=== PATIENT | male | born 1965 | race Caucasian/White ===

== ENCOUNTER 2020-02-25 08:06 | Inpatient (IN) ==
--- NOTE | 2020-02-05 15:06 | PAT Medication Instructions ---
Medication Instructions Date of Service February 05, 2020 Home Medications metformin 500 mg PO QPM multivitamin 1 tab PO QAM pantoprazole [Protonix] 40 mg PO QAM DO NOT take the morning of surgery multivitamin 1 tab PO QAM Take morning of surgery With a small sip of water, OTHERWISE NOTHING TO EAT OR DRINK AFTER MIDNIGHT: pantoprazole [Protonix] 40 mg PO QAM Take evening before surgery metformin 500 mg PO QPM Other Notes If you have any questions please call us at [phone] or [phone] or [phone] or [phone]
--- NOTE | 2020-02-11 17:40 | PAT Medication Instructions ---
Medication Instructions Date of Service February 11, 2020 Home Medications metformin 500 mg PO QPM multivitamin 1 tab PO QAM pantoprazole [Protonix] 40 mg PO QAM DO NOT take the morning of surgery multivitamin 1 tab PO QAM Take morning of surgery With a small sip of water, OTHERWISE NOTHING TO EAT OR DRINK AFTER MIDNIGHT: pantoprazole [Protonix] 40 mg PO QAM Take evening before surgery metformin 500 mg PO QPM Other Notes If you have any questions please call us at [phone] or [phone] or [phone] or [phone]
--- NOTE | 2020-02-12 09:21 | Anesthesiology Consultation ---
Date of Service February 12, 2020 Assessment & Plan (1) Encounter for pre-operative examination: COVID Status: As of 02/11 PAT assessment, patient denies travel to endemic area, known exposure/sick contacts, symptoms, or testing for coronavirus. Chart Review Chart Review: Acceptable Risk for Surgery and Patient seen in Pre Admission Testing Teaching & Discussion Instructed NPO after midnight before surgery, except medications with 15 cc of water. Medication instructions provided according to the PAT guidelines. History Surgery Operation Date: 02/25/20 10:05 Proposed Procedures p L4-S1 Decompression and Fusion, Spinal Cord Monitoring - Richi Brown DO Height/Weight Height: 6 ft Weight: 98.3 kg Allergies Allergy/AdvReac Type Severity Reaction Status Date / Time prednisone AdvReac Shakiness Verified 02/05/20 11:22 Medications Home Medications Medication Instructions Recorded Confirmed Last Taken metformin 500 mg PO QPM 02/05/20 02/05/20 Unknown multivitamin 1 tab PO QAM 02/05/20 02/05/20 Unknown pantoprazole [Protonix] 40 mg PO QAM 02/05/20 02/05/20 Unknown Past Medical History Medical History Barretts esophagus Chronic back pain Degenerative disc disease DM type 2 (diabetes mellitus, type 2) NIDDM GERD (gastroesophageal reflux disease) Sciatic pain Exercise / Class Metabolic Activity II 4-5 Yardwork/Stairs/Walk up hill (Denies CP or SOB with 1 FOS) Past Family History Family History Mother Diabetes Other No family history of adverse response to anesthesia Past Surgical History Surgical History History of appendectomy History of cholecystectomy History of colonoscopy History of esophagogastroduodenoscopy (EGD) History of foot surgery History of lumbar surgery Hx of LASIK Past Anesthesia History No Hx of Anesthesia Complications and No Family Hx of Anesthesia Complications History of PONV No Hx of PONV and No Hx of Motion Sickness Social History Smoking Status: Former smoker Do You Dip or Chew Tobacco: No Smoking End Date: 25 years ago Hx Alcohol Use: Yes Alcohol type: beer alcohol intake frequency: a few times a month Hx Substance Use: No substance use type: does not use Review of Systems Pt denies any recent chest pain, shortness of breath, palpitations, cough, fever or URI. Physical Exam Vital Signs BP: 136/79 P: 64bpm SPO2: 98% RA T: 98.0 F R: 14 ENMT Mouth: + chipped teeth (upper L molar); no dental restorations and no loose teeth Thyromental Distance: < 3.5 Finger Breadths (3) Mallampati Class: II Neck normal visual inspection; neck extension not limited Respiratory normal respiratory effort Auscultation: lungs clear to auscultation bilaterally Cardiovascular Rate/Rhythm: regular rate Heart Sounds: no murmur Testing Laboratory Results 02/12/20 09:29 02/12/20 09: PT 10.5 Seconds (9.0-12.0) 02/12/20 09: INR 1.0 (0.9-1.1) 02/12/20 09: APTT 27.3 Seconds (21.0-31.0) 02/12/20 09: Urine Color Yellow 02/12/20: Urine Appearance Clear (Clear) 02/12/20 09: Urine pH 8.5 (4.5-7.5) H 02/12/20 09:29 Ur Specific [place] 1.013 (1.000-1.030) 02/12/20 09: Urine Protein Negative (Negative) 02/12/20 09: Urine Glucose (UA) Negative (Negative) 02/12/20 09: Urine Ketones Negative (Negative) 02/12/20 09: Urine Nitrite Negative (Negative) 02/12/20: Ur Leukocyte Esterase Negative (Negative) 02/12/20 09: Blood Type B Positive 02/12/20 09:29 Antibody Screen NEGATIVE 02/12/20 09:29 Electrocardiogram Date: 02/12/20 Findings: + SB @ (59bpm) Right axis deviation. Chest X-Ray Date: 02/12/20 Findings: + NAD
--- NOTE | 2020-02-12 09:51 | XRay Report ---
XR chest Pre-admission PA/Lat CLINICAL HISTORY: PAT preoperative evaluation COMPARISON STUDY: No previous studies for comparison. FINDINGS: The bones soft tissues and hemidiaphragms are normal. The cardiomediastinal silhouette is n ormal. The lungs are clear. The pulmonary vasculature is normal. IMPRESSION: Negative chest. ACT 112: Negative or not required by law. The above report was generated using voice recognition software. It may contain grammatical, syntax or spelling errors. Electronically signed by: Irineo Monroe M.D. 02/12/2020 9:49 AM
[2020-02-12 10:34] LABS: Basophils # (auto) 0.05 K/uL (0-0.2); Basophils % (auto) 0.8 %; Eosinophils # (auto) 0.13 K/uL (0-0.5); Hematocrit (blood only) 44.6 % (42-52); Immature Granulocytes # (auto) 0.01 K/uL (0.00-0.02); Immature Granulocytes % (auto) 0.2 %; Lymphocytes # (auto) 1.66 K/uL (1.2-3.4); Mean Corpuscular Hemoglobin 30.9 pg (25-34); Mean Corpuscular Hgb Conc 33.6 g/dL (32-36); Mean Platelet Volume 9.1 fL (7.4-10.4); Neutrophils # (auto) 4.19 K/uL (1.4-6.5); Platelet Count 250 K/uL (130-400); RDW Coefficient of Variation 13.2 % (11.5-14.5); RDW Standard Deviation 44.4 fL (36.4-46.3); Red Blood Count 4.85 M/uL (4.7-6.1); White Blood Count 6.64 K/uL (4.8-10.8)
[2020-02-12 10:39] LABS: BUN Creatinine Ratio 14.9 (10-20); Calcium 9.1 mg/dl (8.5-10.1); Creatinine Clr Calc Pharmacy 122.2 ml/min; Est GFR (African American) 114.8; Est GFR (Non-African American) 99.1; Potassium 4.3 mmol/L (3.5-5.1)
[2020-02-12 10:44] LABS: Appearance Urine Clear (Clear); Bilirubin Urine Negative (Negative); Blood Urine Negative (Negative); Color Urine Yellow; Glucose Urine UA Negative (Negative); Ketones Urine Negative (Negative); Leukocyte Esterase Urine Negative (Negative); Nitrite Urine Negative (Negative); Partial Thromboplastin Time 27.3 Seconds (21.0-31.0); Protein Urine Negative (Negative); Prothrombin Time 10.5 Seconds (9.0-12.0); Specific Gravity Urine 1.013 (1.000-1.030); Urobilinogen Urine Negative (Negative); pH Urine 8.5 (4.5-7.5)
--- NOTE | 2020-02-12 12:38 | Electrocardiogram Report ---
Test Reason : Blood Pressure : / mmHG Vent. Rate : 059 BPM Atrial Rate : 059 BPM P-R Int : 174 ms QRS Dur : 116 ms QT Int : 400 ms P-R-T Axes : 021 118 037 degrees QTc Int : 396 ms Sinus bradycardia Right axis deviation Abnormal ECG No previous ECGs available Confirmed by Joseph Vega ([id number]) on 02/12/2020 12:38:30 PM Referred By: Richi Brown Confirmed By:Joseph Vega
[~2020-02-25 08:06] MED LIST: ACETAMINOPHEN 500 MG TAB PO SCH; CEFAZOLIN 2000MG 2,000 MG/15 ML SYR IV SCH; CeleBREX 200 MG CAP PO SCH; GABAPENTIN 900 MG DOSE PO SCH; LR 15ML/HR IV SCH; SODIUM CHLORIDE 0.9% 250 ML IV PRN
[2020-02-25] MEDS ORDERED: ATROPINE SULFATE 0.1 MG/ML 10ML SYR IV PRN (09:12)
[2020-02-25] MEDS ORDERED: ONDANSETRON INJ 2 MG/ML 2 ML VIAL IV PRN ×2 (09:12→14:00)
[2020-02-25] MEDS ORDERED: ePHEDrine sulfate 50 MG/ML AMP IV PRN (09:12)
[2020-02-25] MEDS ORDERED: DEXAMETHASONE SOD INJ 4 MG/ML VIAL ONE (09:27)
[2020-02-25] MEDS ORDERED: NEOSTIGMINE METHYLSULFATE 5 MG/5 ML SYR ONE (09:27)
[2020-02-25] MEDS ORDERED: GLYCOPYRROLATE 0.2 MG/ML VIAL ONE (09:27)
[2020-02-25] MEDS ORDERED: ONDANSETRON INJ 2 MG/ML 2 ML VIAL ONE (09:27)
[2020-02-25] MEDS ORDERED: LIDOCAINE HCL 2% 2 ML VIAL/AMP(20MG/ML) INFIL ONE (09:27)
[2020-02-25] MEDS ORDERED: fentaNYL citrate 100 MCG/2 ML VIAL ONE ×2 (09:27)
[2020-02-25] MEDS ORDERED: MIDAZOLAM HCL 1 MG/ML 2ML VIAL ONE (09:27)
[2020-02-25] MEDS ORDERED: PROPOFOL IV EMULSION 10 MG/ML 20 ML VIAL IV ONE (09:27)
[2020-02-25] MEDS ORDERED: BUPIVACAINE 0.5 % 5 MG/1 ML MPF 30ML VIAL ONE (09:53)
[2020-02-25] MEDS ORDERED: BACITRACIN INJ 50,000 UNIT VIAL ONE (09:53)
[2020-02-25] MEDS ORDERED: EpINEphrine HCL INJ 1 MG/ML 1ML SYRINGE ONE (09:53)
[2020-02-25] MEDS ORDERED: ROCURONIUM BROMIDE 10 MG/ML 5 ML VIAL IV ONE ×3 (09:54→12:15)
--- NOTE | 2020-02-25 10:18 | History & Physical Bridge Note ---
Date of Service February 25, 2020 History & Physical Bridge Note I have examined the patient, reviewed the History & Physical and in the interval since the performance of the History & Physical I have noted the following changes of clinical significance: no changes noted
--- NOTE | 2020-02-25 10:19 | History & Physical Report ---
Date of Service February 25, 2020 Assessment & Plan (1) Neurogenic claudication due to lumbar spinal stenosis: Lumbar decompression and fusion L4-5 L5-S1 Present on Admission?: Yes History of Present Illness Chief Complaint: Back and leg pain Primary Care Provider: Aidan Carter This is a 55-year-old female presents with chronic persistent back and leg pain after failing extensive course of nonoperative care is here for surgical invention. Allergies Allergy/AdvReac Type Severity Reaction Status Date / Time prednisone AdvReac Mild Shakiness Verified 02/25/20 08:37 Home Medications Home Medications Medication Instructions Recorded Confirmed Type metformin 500 mg PO QPM 02/05/20 02/25/20 History multivitamin 1 tab PO QAM 02/05/20 02/25/20 History pantoprazole [Protonix] 40 mg PO QAM 02/05/20 02/25/20 History Past Med/Surg History Medical History Barretts esophagus Chronic back pain Degenerative disc disease DM type 2 (diabetes mellitus, type 2) NIDDM GERD (gastroesophageal reflux disease) Sciatic pain Surgical History History of appendectomy History of cholecystectomy History of colonoscopy History of esophagogastroduodenoscopy (EGD) History of foot surgery History of lumbar surgery Hx of LASIK Family History Mother Diabetes Other No family history of adverse response to anesthesia Social History Preferred Language: Sami Communication Ability: Effective Caddie Supervisor Required: No Beliefs That Will Affect Care: None Current Living Situation: Spouse Feels Safe at Home: Yes Safety Concerns: Feels Safe At This Time Smoking Status: Former smoker Do You Dip or Chew Tobacco: No ; Smoking End Date: 25 years ago ; Second Hand Exposure: Yes (as a child) ; Tobacco Cessation Education Requested by Patient: No Hx Alcohol Use: Yes Alcohol type: beer Hx Substance Use: No Physical Exam Physical Exam: Patient is alert and oriented neurologically intact Heart regular rate and rhythm Lungs clear to auscultation Results & Data Vital Signs (Past 12 Hours) Vital Signs Temp Pulse Resp BP Pulse Ox 02/25/20 08:40 36.5 C 66 16 132/72 100
[2020-02-25] MEDS ORDERED: FLOSEAL HEMOSTATIC MATRIX 10ML TOP ONE (11:43)
[2020-02-25] MEDS ORDERED: BUPIVACAINE/EPINEPHRINE 0.25% 1:200,000 30 ML VIAL INJ ONE (11:45)
[2020-02-25] MEDS ORDERED: BACITRACIN INJ 50,000 UNIT VIAL IR ONE (11:46)
[2020-02-25] MEDS ORDERED: BUPIVACAINE/EPINEPHRINE 0.5% MPF 1:200,000 10 ML VIAL INJ PRN (11:47)
--- NOTE | 2020-02-25 12:13 | Operative Report ---
Post Operative Report Pre & Post Diagnosis Operation Date: 02/25/20 09:45 Pre-Op Diagnosis: Lumbar spinal stenosis with neurogenic claudication Post-Op Diagnosis: Same I identified the patient and participated in the time-out.: Yes Procedure Operation Date: 02/25/20 09:45 Actual Procedures #1 lumbar decompression with bilateral medial facetectomies and foraminotomies. #2 posterior spinal fusion L4-5 L5-S1. #3 placement posterior instrumentation L4-5 L5-S1. #4 interbody fusion L4-5 L5-S1. #5 placement of peek cage 12 x 26 mm at L5-S1. #6 placement of locally harvested morselized autograft in the posterior lateral gutters. #7 placement infuse collagen sponge bone master graft in the posterior lateral gutters and ostial amp interbody space. Surgeon Richi Brown DO Supervisor Detasseling Crew Sussy Green Estimated Blood Loss 110 Findings Consistent with Post-Op Diagnosis Specimens None Indications This is a 55-year-old male who presents with above-mentioned diagnosis after failing extensive course of nonoperative care is here for the above-mentioned procedure. Description of Procedure Patient was met with identified informed consent obtained. Patient was then taken to the operative suite underwent intubation placed in a prone position the Rex table on top of the Romario frame. All bony prominences well-padded eyes inspected to ensure no external pressure placed upon them. This point the lumbar spine was prepped and draped in normal sterile fashion. Sharp dissection with the assistance of Bovie cautery was performed down to and exposing the lamina transverse processes of L4-L5 and sacral ala bilaterally. From caudal cephalad fashion complete laminectomy of L5 partial laminectomy of L4 was performed including bilateral medial facetectomies foraminotomies addressing all neural compression. Pedicle screws were then placed in L4-L5 and S1 levels bilaterally with assistance of fluoroscopy and appropriate size magaly placed. By way of a transforaminal approach on the right a complete discectomy of L5-S1 was performed endplates curetted to subcortical bleeding bone and a 12 x 26 mm peek cage filled with osteo-bone graft tapped in position. The rods were then locked into final position bilaterally. The transverse processes of L4-L5 and sacral ala burred to subcortical bleeding bone. Infuse collagen sponge master graft local autograft was placed in the posterior lateral gutters. 15 round KAILA drain inserted. The incision was then closed with 1 Vicryl in the fascia 2-0 Vicryl subcutaneously and 4 Monocryl for final skin closure. Steri-Strip sterile dressings placed. Patient waken taken to PACU stable condition. Please note spinal cord monitoring was utilized that the procedure no changes noted. Lastly Sussy Green was present at the entire procedure involved the patient positioning complex portions of the surgery and final skin closure. I attest to the content of the Intraoperative Record and any orders documented therein. Any exceptions are noted below.
--- NOTE | 2020-02-25 12:18 | Fluoroscopy Report ---
FL lumbar spine 2-3V CLINICAL HISTORY: L4-S1 DECOMP/FUSION COMPARISON STUDY: None. FLUOROSCOPY TIME: 19.1 seconds. FLUOROSCOPIC IMAGES: 2 FINDINGS: Fluoroscopy was provided for L5-S1 discectomy with interbody spacer placement. Posterior de compression is noted. There are bilateral pedicle screws at the L4, L5 and S1 levels. Hardware is int act. There are no unexpected radiopaque foreign bodies. IMPRESSION: Fluoroscopy provided for L5-S1 discectomy and L4-S1 bilateral pedicle screw fusion. ACT 112: Negative or not required by law. Electronically signed by: Adrian Olson M.D. 02/25/2020 12:16 PM
[2020-02-25] MEDS: fentaNYL citrate 100 MCG/2 ML VIAL IV PRN ×4 (12:38→12:53)
[2020-02-25] MEDS: HYDROmorphone INJ 1 MG/ML SYRINGE IV PRN ×3 (12:58→13:08)
[2020-02-25] MEDS ORDERED: HYDROmorphone INJ 1 MG/ML SYRINGE IV PRN (14:00)
[2020-02-25] MEDS ORDERED: ONDANSETRON 4 MG OD TAB PO PRN (14:00)
[2020-02-25] MEDS ORDERED: ALUMINUM/MAGNESIUM SUSP 30 ML UDC PO PRN (14:00)
[2020-02-25] MEDS ORDERED: SOD PHOSPHATE/SOD BIPHOSPHATE ENEMA 132 ML BTL PR PRN (14:00)
[2020-02-25] MEDS ORDERED: DO NOT ADMINISTER PNEUMOCOCCAL VACCINE PRN (14:00)
[2020-02-25] MEDS ORDERED: FAMOTIDINE 20 MG TAB PO PRN (14:00)
[2020-02-25] MEDS ORDERED: bisacodyL 10 MG SUPP PR PRN (14:00)
[2020-02-25] MEDS ORDERED: MAGNESIUM HYDROXIDE SUSP 30 ML UDC PO PRN (14:00)
[2020-02-25] MEDS ORDERED: ACETAMINOPHEN 500 MG TAB PO PRN (14:00)
[2020-02-25] MEDS ORDERED: NALOXONE HCL 0.4 MG/1 ML VIAL/CARP IV PRN (14:00)
[2020-02-25] MEDS ORDERED: PROMETHAZINE HCL 12.5 MG in SODIUM CHLORIDE 0.9% 50 ML IV PRN (14:00)
[2020-02-25] MEDS ORDERED: LORazepam 0.5 MG/1 ML VIAL IV PRN (14:00)
[2020-02-25] MEDS ORDERED: LORazepam 0.5 MG TAB PO PRN (14:00)
[2020-02-25] MEDS ORDERED: METOCLOPRAMIDE HCL INJ 5 MG/ML 2 ML VIAL IV PRN (14:00)
[2020-02-25] MEDS ORDERED: ACETAMINOPHEN 1,000 MG/100 ML VIAL IV PRN (14:00)
[2020-02-25] MEDS ORDERED: HYDROmorphone INJ 0.5 MG/0.5 ML SYR IV PRN (14:00)
[2020-02-25] MEDS ORDERED: TRAMADOL HCL 50 MG TABLET PO PRN (14:00)
[2020-02-25] MEDS ORDERED: DO NOT ADMINISTER FLU VACCINE PRN (14:00)
--- NOTE | 2020-02-25 14:02 | Anesthesiology Progress Note ---
Date of Service February 25, 2020 Anesthesia Post Procedure Vital Signs Vital Signs: Temp Pulse Pulse Resp BP BP Pulse Ox 02/25/20 13:45 62 12 145/78 H 97 02/25/20 13:35 66 13 139/76 98 02/25/20 13:25 36.9 C 63 20 138/77 98 02/25/20 13:15 70 15 147/84 H 99 02/25/20 13:05 57 L 15 146/71 H 99 02/25/20 12:55 59 L 12 152/80 H 99 02/25/20 12:45 60 26 H 145/80 H 100 02/25/20 12:35 74 19 148/87 H 100 02/25/20 12:28 36.4 C L 89 14 150/91 H 100 02/25/20 08:40 36.5 C 66 16 132/72 100 Pain Intensity Back: Pain Intensity: 3 Transfer of Care Handoff Completed per policy Notes Mental Status: alert / awake / arousable and participated in evaluation Patient Amnestic to Procedure: Yes Nausea / Vomiting: adequately controlled Pain: adequately controlled Airway Patency, RR, SpO2: stable & adequate BP & HR: stable & adequate Hydration State: stable & adequate Anesthetic Complications: no major complications apparent and Pt Satisfied with anesthetic care
[2020-02-25] MEDS: LACTATED RINGER'S 1,000 ML IV SCH ×2 (14:06→19:06)
[2020-02-25] MEDS: KETOROLAC 30 MG/ML VIAL IV SCH ×2 (14:32→19:29)
[2020-02-25] MEDS ORDERED: PHARMACY GLYCEMIC MGMT CONSULT PRN (15:09)
[2020-02-25] MEDS ORDERED: GLUCOSE 40% GEL 15 GM TUBE PO PRN (15:15)
[2020-02-25] MEDS ORDERED: GLUCOSE 10 TABS/TUBE PO PRN (15:15)
[2020-02-25] MEDS ORDERED: CARBOHYDRATES FOR HYPOGLYCEMIA PO PRN (15:15)
[2020-02-25] MEDS ORDERED: INSULIN GLARGINE SOLOSTAR 100 UNITS/ML 3 ML PEN SC ONE (15:15)
[2020-02-25] MEDS ORDERED: GLUCAGON FOR INJ 1 MG VIAL IM PRN (15:15)
[2020-02-25] MEDS ORDERED: DEXTROSE 50% 50 ML SYRINGE IV PRN (15:15)
[2020-02-25] MEDS: INSULIN ASPART 100 UNITS/ML 3 ML PEN SC SCH ×2 (17:49→20:49)
[2020-02-25] MEDS: CEFAZOLIN 2000MG 2,000 MG/15 ML SYR IV SCH (17:52)
[2020-02-25] MEDS: OXYCODONE HCL IR 5 MG TAB (IMMEDIATE RELEASE) PO PRN ×2 (19:33→23:52)
[2020-02-25] MEDS: DOCUSATE SODIUM/SENNA 50/8.6MG TAB PO SCH (20:48)
[2020-02-26] MEDS: KETOROLAC 30 MG/ML VIAL IV SCH ×2 (02:15→07:43)
[2020-02-26] MEDS: CEFAZOLIN 2000MG 2,000 MG/15 ML SYR IV SCH (02:15)
[2020-02-26] MEDS: POLYETHYLENE (MIRALAX) 17 GM PACK PO SCH ×4 (05:56→23:48)
[2020-02-26 06:52] LABS: Basophils # (auto) 0.02 K/uL (0-0.2); Basophils % (auto) 0.2 %; Eosinophils # (auto) 0.11 K/uL (0-0.5); Hematocrit (blood only) 38.3 % (42-52); Hemoglobin 13.1 g/dL (14.0-18.0); Immature Granulocytes # (auto) 0.03 K/uL (0.00-0.02); Immature Granulocytes % (auto) 0.3 %; Lymphocytes # (auto) 1.87 K/uL (1.2-3.4); Lymphocytes % (auto) 16.7 %; Mean Corpuscular Hemoglobin 31.4 pg (25-34); Mean Corpuscular Hgb Conc 34.2 g/dL (32-36); Mean Corpuscular Volume 91.8 fL (80-100); Mean Platelet Volume 8.5 fL (7.4-10.4); Monocytes # (auto) 0.98 K/uL (0.11-0.59); Monocytes % (auto) 8.7 %; Neutrophils # (auto) 8.22 K/uL (1.4-6.5); Neutrophils % (auto) 73.1 %; Platelet Count 201 K/uL (130-400); RDW Coefficient of Variation 13.2 % (11.5-14.5); RDW Standard Deviation 44.3 fL (36.4-46.3); Red Blood Count 4.17 M/uL (4.7-6.1); White Blood Count 11.23 K/uL (4.8-10.8)
[2020-02-26 07:29] LABS: BUN Creatinine Ratio 17.2 (10-20); Calcium 8.6 mg/dl (8.5-10.1); Creatinine Clr Calc Pharmacy 109.5 ml/min; Est GFR (African American) 106.7; Est GFR (Non-African American) 92.1; Potassium 4.1 mmol/L (3.5-5.1)
[2020-02-26 07:40] LABS: Estimated Average Glucose 137 mg/dl; Hemoglobin A1C 6.4 % (4.5-5.6)
[2020-02-26] MEDS: MULTIVITAMIN TAB PO SCH (07:43)
[2020-02-26] MEDS: PANTOprazole 40 MG TAB PO SCH (07:43)
--- NOTE | 2020-02-26 08:17 | Orthopedic Progress Note ---
Date of Service February 26, 2020 Assessment & Plan (1) Neurogenic claudication due to lumbar spinal stenosis: At this time we will continue physical therapy monitor his KAILA output hopefully discharge home in the next few days. Admission and Anticipated Discharge Date Admission Date: February 25, 2020 Subjective Back pain controlled leg symptoms markedly improved. Physical Exam Physical Exam: Patient is excellent strength testing appears comfortable. Results & Data ([facility]) Vital Signs (Past 12 Hours) Vital Signs Temp Pulse Resp BP Pulse Ox 02/26/20 07:33 36.5 C 66 14 130/75 99 02/26/20 03:15 36.7 C 63 16 124/69 98 02/25/20 23:45 36.6 C 75 16 123/65 98
[2020-02-26] MEDS: DEXAMETHASONE SOD PHOSPHATE 8 MG in SYRINGE 0 ML IV SCH (08:53)
[2020-02-26] MEDS: INSULIN ASPART 100 UNITS/ML 3 ML PEN SC SCH ×4 (08:58→20:59)
[2020-02-26] MEDS ORDERED: INSULIN GLARGINE SOLOSTAR 100 UNITS/ML 3 ML PEN SC ONE (09:00)
[2020-02-26] MEDS: OXYCODONE HCL IR 5 MG TAB (IMMEDIATE RELEASE) PO PRN ×2 (09:01→20:12)
--- NOTE | 2020-02-26 11:13 | Pharmacy Report ---
Glycemic Control Consultation - Date of Service February 26, 2020 - Scope Scope: Glycemic Pharmacist consulted for glycemic control and to write orders per [facility] inpatient glycemic control protocol. - Objective Weight: 99.201 kg Accuchecks BSG (last 24hrs): 02/25/20 02/25/20 02/25/20 12:31 14:09 17:08 Glucose POC Glucose 195 H 187 H 256 H 02/25/20 02/26/20 02/26/20 20:48 06:38 08:19 Glucose 154 H POC Glucose 169 H 127 H Laboratory Data (last 24hrs): 02/26/20 06:38 Potassium 4.1 Carbon Dioxide 28 Anion Gap 5.0 Creatinine 0.93 Est Cr Clr Drug Dosing 109.5 HbA1c: Hemoglobin A1c 6.4 % (4.5-5.6) H 02/26/20 06:38 - Recent Pertinent Medications Outpatient Anti-diabetic Regimen: * metformin 500 mg PO qAM * A1c = 6.4 % 02/26/20 The patient is currently receiving: * Basal insulin: Lantus 15 units x 1 * Correctional Insulin: Novolog Correction per scale ACHS Goal Range: Low 110 mg/dL - High 140 mg/dL Correction Factor: 30 mg/dL/unit * Prandial insulin: Per carb ratio of 1 unit per 10 grams CHO consumed Risk Factors for Insulin Resistance: * Steroids: dexamethasone 8 mg IV x 1 intraop * Recent Surgery: POD 1 for spinal surgery * Diet: T2DM - Assessment & Plan Assessment & Plan: ASSESSMENT: * Mr Austin is a 55 y/o M with a PMH of well controlled T2DM on one oral medication. He received steroids during surgery yesterday. * Patient's fasting yesterday was 140 mg/dL and today is 127 mg/dL. He was given 15 units of Lantus with weight-based stress of 1-2 Novolog yesterday. BSGs yesterday were [phone] mg/dL. * Due to PRP glucose of 154 mg/dL will give additional 10 units of Lantus this morning. Tighten Novolog a smidge to weight-based stress of 2. * Restart metformin at dinner due to good kidney function and good oral intake. * ADA & AACE recommend a goal blood sugar range 140-180 mg/dl for the majority of critically ill & non-critically ill patients. However, more stringent targets may be selected in individual cases. Will utilize more stringent goal of 110-140mg/dl based on patient age & comorbidities. Additionally, tighter glycemic control is warranted to facilitate wound healing. PLAN FOR INPATIENT GLYCEMIC CONTROL: * start metformin tonight * Basal insulin * Lantus 10 units SQ x 1 * Bolus insulin * NovoLog per scale ACHS or Q6hrs while NPO * Goal Range: Low 110 mg/dL - High 140 mg/dL * Correction Factor: 25 mg/dL/unit * Nutritional / Prandial insulin per carb ratio of 1 unit per 8 grams CHO consumed RECOMMENDATIONS FOR DISCHARGE * Recommend to continue home regimen. HbA1C at goal. Thank you.
[2020-02-26] MEDS ORDERED: METFORMIN HCL 500 MG TAB PO SCH (16:30)
[2020-02-26] MEDS: DOCUSATE SODIUM/SENNA 50/8.6MG TAB PO SCH (21:53)
[2020-02-27] MEDS: POLYETHYLENE (MIRALAX) 17 GM PACK PO SCH (05:34)
[2020-02-27] MEDS: PANTOprazole 40 MG TAB PO SCH (08:25)
[2020-02-27] MEDS: MULTIVITAMIN TAB PO SCH (08:25)
[2020-02-27] MEDS: DEXAMETHASONE SOD PHOSPHATE 8 MG in SYRINGE 0 ML IV SCH (08:25)
[2020-02-27] MEDS: OXYCODONE HCL IR 5 MG TAB (IMMEDIATE RELEASE) PO PRN (08:27)
[2020-02-27] MEDS: INSULIN ASPART 100 UNITS/ML 3 ML PEN SC SCH (08:34)
[2020-02-27] MEDS ORDERED: INSULIN GLARGINE SOLOSTAR 100 UNITS/ML 3 ML PEN SC ONE (09:00)
--- NOTE | 2020-02-27 10:20 | Discharge Summary ---
Date of Service February 27, 2020 Admission HPI Per Admitting Provider This is a 55-year-old female presents with chronic persistent back and leg pain after failing extensive course of nonoperative care is here for surgical invention. Principal Diagnosis Lumbar spinal stenosis with neurogenic claudication Discharge Data Allergies Allergy/AdvReac Type Severity Reaction Status Date / Time prednisone AdvReac Mild Shakiness Verified 02/25/20 08:37 Consultations 02/25/20 14:00 Consult Case Management - Discharge Planning Routine Procedures Performed Operation Date: 02/25/20 09:45 Actual Procedures p L4-S1 Decompression and Fusion, Spinal Cord Monitoring(Not Applicable) - Richi Brown DO Ordered Studies 02/25/20 09:45 FL fluoroscopy <1hr Routine FL lumbar spine 2-3V Routine Hospital Course (1) Neurogenic claudication due to lumbar spinal stenosis: Patient underwent lumbar decompression fusion tolerated this well was taken to the orthopedic floor possibly. Postop day 1 she was up and ambulating progressed to postop day 2. KAILA drain decreasing probably. Pain well controlled. Strength intact. Subsequent discharge home. Discharge orders and instructions from the chart for further review. Total Time Total Time Spent Total Time Spent (In Minutes): 20 minutes Discharge Plan Discharge Items Patient Disposition: Home - Self-Care Reason For Visit: LUMBAR SPINAL STENOSIS WO NEUROGENIC CLAUDICATION Discharge Diagnosis: Lumbar spinal stenosis with neurogenic claudication Activity: As commented below Non-emergency contact: Primary Care Provider Call non-emergency contact if: you have any medication questions Follow-up/Referrals: Aidan Carter [Primary Care Provider] - Diet: Regular Addtl Attending Provider Instructions: ACTIVITY RECOMMENDATIONS: SELF CARE INSTRUCTIONS AFTER THORACIC/LUMBAR FUSIONS 1. You may walk to your tolerance. It is good exercise for your legs and back. Expect some back and intermittent leg aches and pains. 2. You may perform "counter-top" level activities (make a sandwich, nohemy with a project, etc.). 3. No bending or lifting of more than 10 pounds or back twisting of any nature (roll like a log when turning in bed). 4. You may ride in a car for 20-30 minutes at a time. No driving until after your first visit with your doctor. 5. Frequent changes of position and restricting sitting to 30 minutes at a time will help limit the amount of back spasms and stiffness you may experience. 6. You may discontinue the use of ambulatory aids (cane, crutches, etc.) once your strength and confidence allow. 7. You may director of officiating the shower and let water strike your incision when you arrive home at least once daily. Do not take a tub bath, sit in a hot tub or go into a swimming pool until after your first recheck in the office. SPECIAL CARE INSTRUCTIONS: VERY IMPORTANT TO READ AND REVIEW A. Your surgical incision has been closed with a cosmetic suture under the skin that will dissolve in about 6 weeks. In 14 days, you can use a pair of clean scissors and cut the suture that is left outside of the skin at the ends of your incision. 1. The small skin tapes can be removed 7 days after surgery if they have not fallen off by that point. 2. You may keep the wound open to air as much as possible to promote healing after post-op day number 5 unless told otherwise by your doctor. 3. If you think the wound looks like it is becoming infected (redness or worsening drainage) and/or you are experiencing fever, chill or worsening back pain and muscle spasms, contact the office so that we may evaluate you as soon as possible. B. Complications are uncommon, but please contact us if you have any signs or symptoms of: 1. wound infection (fever higher than 102.5 degrees F, redness, separation of wound, drainage, or increasing pain from the incision) 2. blood clots in legs (pain, swelling, redness and warmth in legs) 3. urinary tract infection (fever higher than 102.5 degrees F, burning upon urination or increased frequency of urination) 4. nerve problems (inability to walk on your toes or heels, numbness, loss of bowel or bladder control) 5. any other symptoms that concern you C. Please call the office at if you have any concerns or questions about your operation or recovery. D. No smoking! Smoking drastically decreases the chance of a solid fusion. E. Do not take any anti-inflammatory medications (Indocin, Advil, Motrin, Aspirin, Naprosyn, etc.) as these may inhibit the chance of a solid fusion. Tylenol is okay to take for pain. MANAGING PAIN AFTER SPINAL SURGERY 1. Narcotic medication is intended for short-term use and will be provided for surgical pain. Surgical pain usually lasts for a period of 4-6 weeks. Narcotic medication includes Percocet, Vicodin, Darvocet, Tylenol #3 or Lortab. 2. Longer-term pain is more appropriately treated with non-narcotic medication such as Tylenol ES. 3. Muscle spasm is not appropriately treated with narcotics. Muscle relaxers such as Soma, Flexeril or Skelaxin can be used along with Tylenol ES. 4. Remember that we all live with some "aches and pains". This is not unusual or uncommon after an injury or as we get older. a. Back pain is expected and may include muscle spasms for 4 to 6 weeks after surgery. The pain should gradually improve. If the pain worsens for no apparent reason, please contact the office. b. Intermittent leg pain may also be experienced and should not be concerned about unless it worsens for no apparent reason. If so, please contact the office. 5. We will provide appropriate medication within the normal guidelines of their prescribed use. We will also be very cautious and aware of potential abuse and extended duration of patients' medication needs. a. Pain medications are for your comfort and to assist with sleep and rest so that the tissue can heal. They are not provided in order to return to normal activity and should not be used through the day. To do so or worsening pain at night can result from ongoing tissue damage and development of tolerance to the prescribed medicine. 6. Please allow 2-3 days to process refills. Prescriptions will not be mailed but must be picked up at the office. FOLLOW UP VISIT: Keep your scheduled follow-up appointment. Any questions, please call the office at . Pending Studies at Discharge: No Stand-Alone Forms: My [facility] [employer], Smoking Cessation Medications and DC Order Prescriptions: New tramadol 50 mg tablet 50 mg PO Q6H PRN (Reason: pain, moderate) Qty: 30 RF: 0 oxycodone 5 mg tablet 5 mg PO Q6H PRN (Reason: pain, severe) Qty: 20 RF: 0 Continued multivitamin Tablet 1 tab PO QAM RF: 0 metformin 500 mg Tablet 500 mg PO QPM RF: 0 pantoprazole [Protonix] 40 mg Tablet,Delayed Release (Dr/Ec) 40 mg PO QAM RF: 0 Discharge Orders: Discharge Order (Routine); Ordered 02/27/20 Ordered By: Richi Beal/Other Patient Handouts: Managing Type 2 Diabetes Admission Data Admit Date/Time: 02/25/20 12:40 Attending Provider: Richi Brown Admit Provider: Richi Brown Primary Care Provider: Aidan Carter
== END 2020-02-27 12:33 | disposition home or self-care (01) | DRG 455 ==
LOC: ASU 08:06 → 3E 12:40